=== PATIENT | female | born 1960 | race Caucasian/White ===

== ENCOUNTER 2021-07-24 13:12 | Inpatient (IN) | payer SELFPAY ==
[2021-07-24] MEDS ORDERED: Acetaminophen 325 MG TAB PO PRN (16:04)
[2021-07-24] MEDS ORDERED: Ondansetron ODT 4 MG TAB PO PRN (16:04)
[2021-07-24] MEDS ORDERED: Ondansetron PF 4 MG/2 ML Vial IVP PRN (16:04)
[2021-07-24] MEDS ORDERED: Lisinopril 5 MG TAB PO SCH (16:30)
[2021-07-24] MEDS: Sodium Chloride 0.9% 1,000 ML IV SCH (16:51)
[2021-07-24 18:41] LABS: SARS-CoV-2 NAA Rapid Test Not Detected (NotDetected)
[2021-07-24] MEDS: Famotidine 20 MG TAB PO SCH (20:02)
[2021-07-24] MEDS: Propranolol 10 MG TAB PO SCH (20:02)
[2021-07-24] MEDS: Enoxaparin Sodium 80 MG/0.8 ML SYRINGE SC SCH (20:03)
[2021-07-25] MEDS: Sodium Chloride 0.9% 1,000 ML IV SCH ×2 (03:53→21:11)
[2021-07-25 06:00] LABS: ALT (SGPT) 31 U/L (8-55); AST (SGOT) 70 U/L (5-34); Albumin 2.6 g/dL (3.4-4.8); Alkaline Phosphatase 224 U/L (40-110); Anion Gap 12 mmol/L (10-20); BUN (Urea Nitrogen) 6 mg/dL (9.8-20.1); Calc. Creatinine Clearance 140 mL/min (70-130); Calcium 8.7 mg/dL (7.8-10.44); Carbon Dioxide 22 mmol/L (23-31); Chloride 108 mmol/L (98-107); Globulin 3.3 g/dL (2.4-3.5); Glucose 85 mg/dL (80-115); Potassium 3.4 mmol/L (3.5-5.1); Protein, Total 5.9 g/dL (5.8-8.1); Sodium 139 mmol/L (136-145)
[2021-07-25 06:20] LABS: HBCM Index 0.13 S/CO (0-0.79); HBSAg Index 0.31 S/CO (0-0.99); Hep A IgM AB Non-Reactive (NonReactive); Hep A IgM S/CO 0.44 S/CO (0-0.79); Hep B Surf Ag Non-Reactive S/CO (NonReactive); Hep C IgG Ab Non-Reactive (NonReactive); Hep C Index 0.17 S/CO (0-0.79); Hepatitis B Core IgM Abs Non-Reactive (NonReactive)
[2021-07-25] MEDS: Famotidine 20 MG TAB PO SCH (08:31)
[2021-07-25] MEDS: Lisinopril 5 MG TAB PO SCH (08:31)
[2021-07-25] MEDS: Propranolol 10 MG TAB PO SCH ×2 (08:33→20:29)
[2021-07-25] MEDS: Enoxaparin Sodium 80 MG/0.8 ML SYRINGE SC SCH ×3 (08:34→21:12)
[2021-07-25 11:46] LABS: #Basophils 0.1 thou/uL (0.0-0.2); #Eosinphils 0.1 thou/uL (0.0-0.7); #Lymphocytes 1.6 thou/uL (1.20-3.40); #Monocytes 1.4 thou/uL (0.11-0.59); #Neutrophils 11.6 thou/uL (1.40-6.50); %Basophils 0.4 % (0.0-1.0); %Eosinophils 0.4 % (0.0-10.0); %Lymphocytes 11.2 % (21.0-51.0); %Monocytes 9.5 % (0.0-10.0); %Neutrophils 78.6 % (42.0-75.0); Hemoglobin 14.3 g/dL (12.0-16.0); Mean Corpuscular HGB CONC 32.1 g/dL (32.0-36.0); Mean Corpuscular Hemoglobin 31.8 pg (27.0-31.0); Mean Corpuscular Volume 99.2 fL (78.0-98.0); Mean Platelet Volume 6.4 fL (7.4-10.4); Platelet Count 278 thou/uL (130-400); RBC Distribution Width 13.6 % (11.5-14.5); Red Blood Cell (RBC) Count 4.48 mill/uL (4.20-5.40); White Blood Cell (WBC) Count 14.7 thou/uL (4.8-10.8)
[2021-07-25 11:59] LABS: INR-International Normal Ratio 1.2; Prothrombin Time 15.4 sec (12.0-14.7)
[2021-07-25] MEDS ORDERED: Enoxaparin Sodium 80 MG/0.8 ML SYRINGE SC SCH (20:50)
[2021-07-26 09:08] LABS: #Eosinphils 0.1 thou/uL (0.0-0.7); #Lymphocytes 1.2 thou/uL (1.20-3.40); #Neutrophils 7.4 thou/uL (1.40-6.50); %Basophils 0.4 % (0.0-1.0); %Eosinophils 0.8 % (0.0-10.0); %Lymphocytes 12.5 % (21.0-51.0); %Monocytes 10.3 % (0.0-10.0); Mean Corpuscular HGB CONC 32.1 g/dL (32.0-36.0); Mean Corpuscular Volume 99.6 fL (78.0-98.0); Mean Platelet Volume 6.6 fL (7.4-10.4); Platelet Count 221 thou/uL (130-400); RBC Distribution Width 13.7 % (11.5-14.5); Red Blood Cell (RBC) Count 4.07 mill/uL (4.20-5.40); White Blood Cell (WBC) Count 9.8 thou/uL (4.8-10.8)
[2021-07-26 09:22] LABS: ALT (SGPT) 36 U/L (8-55); AST (SGOT) 84 U/L (5-34); Albumin 2.9 g/dL (3.4-4.8); Alkaline Phosphatase 243 U/L (40-110); Anion Gap 13 mmol/L (10-20); BUN (Urea Nitrogen) 8 mg/dL (9.8-20.1); Bilirubin, Total 3.4 mg/dL (0.2-1.2); Calc. Creatinine Clearance 126 mL/min (70-130); Calcium 8.9 mg/dL (7.8-10.44); Carbon Dioxide 22 mmol/L (23-31); Chloride 109 mmol/L (98-107); Globulin 3.5 g/dL (2.4-3.5); Glucose 97 mg/dL (80-115); Potassium 3.4 mmol/L (3.5-5.1); Protein, Total 6.4 g/dL (5.8-8.1); Sodium 141 mmol/L (136-145)
[2021-07-26] MEDS: Propranolol 10 MG TAB PO SCH ×2 (09:34→21:33)
[2021-07-26] MEDS: Lisinopril 5 MG TAB PO SCH (09:34)
[2021-07-26] MEDS: Sodium Chloride 0.9% 1,000 ML IV SCH ×2 (09:46→21:33)
[2021-07-26 14:25] VITALS: BMI 29.5
[2021-07-26] MEDS ORDERED: Enoxaparin Sodium 80 MG/0.8 ML SYRINGE SC SCH ×2 (16:30→21:00)
[2021-07-27] MEDS: Lisinopril 5 MG TAB PO SCH (09:00)
[2021-07-27] MEDS ORDERED: Sodium Bicarbonate 2.5 MEQ/5 ML VIAL ONE (09:11)
[2021-07-27] MEDS ORDERED: Fentanyl 100 MCG/2 ML VIAL ONE (09:39)
[2021-07-27] MEDS ORDERED: Midazolam HCl 2 mg/2 ml Vial ONE (09:39)
[2021-07-27] MEDS: Propranolol 10 MG TAB PO SCH ×2 (10:48→20:44)
[2021-07-27] MEDS: Sodium Chloride 0.9% 1,000 ML IV SCH (14:32)
[2021-07-27] MEDS ORDERED: Enoxaparin Sodium 80 MG/0.8 ML SYRINGE SC SCH (15:30)
[2021-07-27] MEDS: Enoxaparin Sodium 80 MG/0.8 ML SYRINGE SC SCH (20:44)
[2021-07-28] MEDS: Sodium Chloride 0.9% 1,000 ML IV SCH ×2 (01:15→14:45)
[2021-07-28 05:10] LABS: Band 8 % (5-11); Hemoglobin 11.8 g/dL (12.0-16.0); Hypochromia SLIGHT = 6-15 cells (100X) (0-5/hpf); Lymphocytes 22 % (21-51); MDiff Complete? YES; Mean Corpuscular HGB CONC 31.4 g/dL (32.0-36.0); Mean Corpuscular Hemoglobin 32.1 pg (27.0-31.0); Mean Platelet Volume 6.8 fL (7.4-10.4); Neutrophil 70 % (42-75); Platelet Count 228 thou/uL (130-400); Platelet Morphology Comment Appears Adequate; RBC Distribution Width 14.1 % (11.5-14.5); Red Blood Cell (RBC) Count 3.67 mill/uL (4.20-5.40); White Blood Cell (WBC) Count 9.1 thou/uL (4.8-10.8)
[2021-07-28] MEDS ORDERED: Potassium Chloride 20 MEQ TAB PO SCH (08:00)
[2021-07-28] MEDS: Lisinopril 5 MG TAB PO SCH (08:51)
[2021-07-28] MEDS: Enoxaparin Sodium 80 MG/0.8 ML SYRINGE SC SCH (08:52)
[2021-07-28] MEDS: Propranolol 10 MG TAB PO SCH (08:52)
[2021-07-28 15:06] LABS: Hemoglobin 12.4 g/dL (12.0-16.0)
[2021-07-28 16:01] VITALS: BP 147/84; TEMP 99.3
== END 2021-07-28 17:10 | disposition home or self-care (01) | DRG 436 ==
LOC: MSONC 13:12 → OBSVTOIN 07-25 08:49 → 2NO 07-25 14:32
PROVIDERS: ADMIT Internal Medicine; ATTEND Internal Medicine
PROC: 0FB23ZX Excision of Left Lobe Liver, Percutaneous Approach, Diagnostic (ICD-10-PCS; principal; 2021-07-27)
DX: C78.7 Secondary malignant neoplasm of liver and intrahepatic bile duct (principal); C79.51 Secondary malignant neoplasm of bone; K76.6 Portal hypertension; R18.0 Malignant ascites; I82.412 Acute embolism and thrombosis of left femoral vein; I82.432 Acute embolism and thrombosis of left popliteal vein; I82.442 Acute embolism and thrombosis of left tibial vein; K92.1 Melena; Z20.822 Contact with and (suspected) exposure to COVID-19; I10 Essential (primary) hypertension; F10.11 Alcohol abuse, in remission; C80.1 Malignant (primary) neoplasm, unspecified; D72.829 Elevated white blood cell count, unspecified; Z88.0 Allergy status to penicillin; Z79.899 Other long term (current) drug therapy
CPT/HCPCS: 36415; 47000; 76536; 76705; 77002; 80053; 80074; 82105; 82274; 82378; 85025; 85610; 85730; 86301; 88307; 88313; 88341; 88342; J1650; J2250; J3010; J7050; U0002

== ENCOUNTER 2021-08-30 15:06 | Inpatient (IN) | payer SELFPAY ==
[2021-08-30 15:40] LABS: #Eosinphils 0.1 thou/uL (0.0-0.7); #Lymphocytes 1.7 thou/uL (1.20-3.40); #Monocytes 1.7 thou/uL (0.11-0.59); #Neutrophils 12.2 thou/uL (1.40-6.50); %Basophils 0.3 % (0.0-1.0); %Eosinophils 0.4 % (0.0-10.0); %Lymphocytes 10.6 % (21.0-51.0); %Monocytes 10.8 % (0.0-10.0); Hemoglobin 13.5 g/dL (12.0-16.0); Mean Corpuscular HGB CONC 31.4 g/dL (32.0-36.0); Mean Platelet Volume 6.1 fL (7.4-10.4); Platelet Count 246 thou/uL (130-400); RBC Distribution Width 13.4 % (11.5-14.5); Red Blood Cell (RBC) Count 4.22 mill/uL (4.20-5.40); White Blood Cell (WBC) Count 15.7 thou/uL (4.8-10.8)
[2021-08-30 16:33] LABS: CKMB 0.5 ng/mL (0-6.6)
[2021-08-30 16:39] LABS: ALT (SGPT) 41 U/L (8-55); AST (SGOT) 81 U/L (5-34); Albumin 2.8 g/dL (3.4-4.8); Alkaline Phosphatase 269 U/L (40-110); Anion Gap 14 mmol/L (10-20); BUN (Urea Nitrogen) 10 mg/dL (9.8-20.1); Bilirubin, Total 3.9 mg/dL (0.2-1.2); CK (CPK) 15 U/L (29-168); Calc. Creatinine Clearance 0 mL/min (70-130); Calcium 9.3 mg/dL (7.8-10.44); Carbon Dioxide 25 mmol/L (23-31); Chloride 97 mmol/L (98-107); Globulin 4.2 g/dL (2.4-3.5); Glucose 99 mg/dL (80-115); Lipase 12 U/L (8-78); Potassium 4.4 mmol/L (3.5-5.1); Sodium 132 mmol/L (136-145)
[2021-08-30 16:41] LABS: Bacteria/HPF 4+ HPF (None Seen); Bilirubin 1+ (Negative); Blood, Urine Negative (Negative); Glucose, Urine (Dipstick) Normal (Negative); Ketone, Urine Negative (Negative); Leukocyte 75 Leu/uL (Negative); Nitrite Negative (Negative); Protein, Urine (Dipstick) 70 mg/dL (Neg-Trace); RBC/HPF 0-3 HPF (0-3); Specific Gravity, Urine 1.034 (1.002-1.036); Urobilinogen 3 mg/dL (Less than 2); pH, Urine 5.5 (5.0-9.0)
[2021-08-30 16:42] LABS: Clarity Turbid (Clear)
[2021-08-30] MEDS ORDERED: Calcium Carbonate 500 MG ChewTAB PO PRN (17:12)
[2021-08-30] MEDS ORDERED: Ondansetron ODT 4 MG TAB PO PRN (17:12)
[2021-08-30] MEDS ORDERED: Ondansetron PF 4 MG/2 ML Vial IVP PRN (17:12)
[2021-08-30] MEDS ORDERED: Lidocaine 1% PF 5 ML VIAL ONE (18:07)
[2021-08-30 18:30] LABS: INR-International Normal Ratio 1.2; PTT 31.2 sec (22.9-36.1); Prothrombin Time 15.3 sec (12.0-14.7)
[2021-08-30 19:19] LABS: Lactic Acid 1.9 mmol/L (0.5-2.2)
[2021-08-30] MEDS ORDERED: Enoxaparin Sodium 40 MG/0.4 ML SYRINGE SC SCH (19:30)
[2021-08-30] MEDS ORDERED: Furosemide 40 MG/4 ML VIAL SLOW IVP SCH (19:30)
[2021-08-30] MEDS: Propranolol 10 MG TAB PO SCH (21:30)
[2021-08-30 22:31] LABS: Troponin I 0.128 ng/mL (< 0.028)
[2021-08-30 23:26] VITALS: BMI 31.6
[2021-08-31] MEDS ORDERED: Enoxaparin Sodium 60 MG/0.6 ML SYRINGE SC SCH (00:15)
[2021-08-31 05:48] LABS: #Eosinphils 0.1 thou/uL (0.0-0.7); #Lymphocytes 1.6 thou/uL (1.20-3.40); #Monocytes 1.8 thou/uL (0.11-0.59); #Neutrophils 9.4 thou/uL (1.40-6.50); %Basophils 0.2 % (0.0-1.0); %Eosinophils 0.4 % (0.0-10.0); %Lymphocytes 12.6 % (21.0-51.0); %Monocytes 13.9 % (0.0-10.0); %Neutrophils 72.8 % (42.0-75.0); Hemoglobin 12.5 g/dL (12.0-16.0); Mean Corpuscular HGB CONC 32.5 g/dL (32.0-36.0); Mean Corpuscular Hemoglobin 32.8 pg (27.0-31.0); Mean Platelet Volume 5.9 fL (7.4-10.4); Platelet Count 223 thou/uL (130-400); RBC Distribution Width 13.5 % (11.5-14.5); Red Blood Cell (RBC) Count 3.81 mill/uL (4.20-5.40)
[2021-08-31 06:15] LABS: ALT (SGPT) 37 U/L (8-55); AST (SGOT) 79 U/L (5-34); Albumin 2.4 g/dL (3.4-4.8); Alkaline Phosphatase 243 U/L (40-110); Anion Gap 14 mmol/L (10-20); BUN (Urea Nitrogen) 11 mg/dL (9.8-20.1); Bilirubin, Total 3.9 mg/dL (0.2-1.2); Calc. Creatinine Clearance 144 mL/min (70-130); Calcium 8.5 mg/dL (7.8-10.44); Carbon Dioxide 25 mmol/L (23-31); Chloride 100 mmol/L (98-107); Globulin 3.9 g/dL (2.4-3.5); Glucose 89 mg/dL (80-115); Potassium 4.1 mmol/L (3.5-5.1); Protein, Total 6.3 g/dL (5.8-8.1); Sodium 135 mmol/L (136-145)
[2021-08-31] MEDS ORDERED: Prevnar 13-Val Conj/PF 0.5 ML SYRINGE IM ONE (09:00)
[2021-08-31] MEDS: Propranolol 10 MG TAB PO SCH ×2 (09:30→21:04)
[2021-08-31 10:03] LABS: Bilirubin, Direct 2.3 mg/dL (0.1-0.3)
[2021-08-31] MEDS ORDERED: Spironolactone 100 MG TAB PO SCH (10:45)
[2021-08-31] MEDS ORDERED: Furosemide 20 MG TAB PO SCH (10:45)
[2021-08-31] MEDS ORDERED: CEFAZOLIN 2 GM in Sodium Chloride 0.9% 100 ML IVPB SCH (12:30)
[2021-08-31] MEDS ORDERED: Sodium Bicarbonate 2.5 MEQ/5 ML VIAL ONE (13:23)
[2021-08-31] MEDS ORDERED: Lidocaine 1% PF 5 ML VIAL ONE (13:23)
[2021-08-31] MEDS ORDERED: Enoxaparin Sodium 100 MG/ML SYRINGE SC SCH (13:30)
[2021-08-31 15:22] LABS: WBC/Nucleated-Auto (BF) 191 /cu.mm
[2021-08-31 15:39] LABS: BF Color Yellow; Body Fluid Source Paracentesis Fluid; Clarity Clear (Clear); RBC Count-Automated (BF) 6 /cu.mm; Tube # EDTA
[2021-08-31 15:40] LABS: BF Segmented Neutrophils 14 %; Cell Count Non Hematic 70 %; Lymphocytes 16 %
[2021-09-01 05:10] LABS: #Basophils 0.1 thou/uL (0.0-0.2); #Eosinphils 0.1 thou/uL (0.0-0.7); #Lymphocytes 1.9 thou/uL (1.20-3.40); #Neutrophils 10.6 thou/uL (1.40-6.50); %Basophils 0.4 % (0.0-1.0); %Eosinophils 0.5 % (0.0-10.0); %Lymphocytes 12.8 % (21.0-51.0); %Monocytes 13.8 % (0.0-10.0); %Neutrophils 72.5 % (42.0-75.0); Hemoglobin 12.2 g/dL (12.0-16.0); Mean Corpuscular HGB CONC 32.8 g/dL (32.0-36.0); Mean Corpuscular Hemoglobin 33.2 pg (27.0-31.0); Mean Platelet Volume 5.7 fL (7.4-10.4); Platelet Count 247 thou/uL (130-400); RBC Distribution Width 13.5 % (11.5-14.5); Red Blood Cell (RBC) Count 3.67 mill/uL (4.20-5.40); White Blood Cell (WBC) Count 14.6 thou/uL (4.8-10.8)
[2021-09-01 05:30] LABS: ALT (SGPT) 40 U/L (8-55); AST (SGOT) 85 U/L (5-34); Albumin 2.3 g/dL (3.4-4.8); Alkaline Phosphatase 244 U/L (40-110); Anion Gap 12 mmol/L (10-20); BUN (Urea Nitrogen) 11 mg/dL (9.8-20.1); Bilirubin, Total 3.5 mg/dL (0.2-1.2); Calc. Creatinine Clearance 142 mL/min (70-130); Calcium 8.7 mg/dL (7.8-10.44); Carbon Dioxide 25 mmol/L (23-31); Chloride 100 mmol/L (98-107); Globulin 3.7 g/dL (2.4-3.5); Glucose 97 mg/dL (80-115); Potassium 3.8 mmol/L (3.5-5.1); Sodium 133 mmol/L (136-145)
[2021-09-01] MEDS: Propranolol 10 MG TAB PO SCH (06:43)
[2021-09-01] MEDS ORDERED: Spironolactone 100 MG TAB PO SCH (08:00)
[2021-09-01] MEDS ORDERED: Spironolactone 25 MG TAB PO SCH (08:00)
[2021-09-01] MEDS ORDERED: Furosemide 20 MG TAB PO SCH (09:00)
[2021-09-01] MEDS ORDERED: Midazolam HCl 2 mg/2 ml Vial ONE (12:55)
[2021-09-01] MEDS ORDERED: Propofol 500 MG/50 ML VIAL ONE (12:56)
[2021-09-01] MEDS ORDERED: fentaNYL Citrate/PF 100 MCG/2 ML SYRINGE ONE (12:56)
[2021-09-01] MEDS ORDERED: Lidocaine 1% w/Epinephrine 1:100K 20 ML VIAL ONE (13:06)
[2021-09-01] MEDS ORDERED: Bupivacaine PF 0.5% 30 ML VIAL ONE (13:06)
[2021-09-01] MEDS ORDERED: CEFAZOLIN 2 GM VIAL ONE (13:15)
[2021-09-01] MEDS ORDERED: Sodium Chloride 0.9% 100 ML ONE (13:15)
[2021-09-01] MEDS ORDERED: PHENYLEPHRINE-NS 100 MCG/ML 10 ML SYRINGE ONE (13:19)
[2021-09-01 15:58] VITALS: BP 91/61
[2021-09-01 16:02] VITALS: TEMP 97.8
== END 2021-09-01 16:32 | disposition home or self-care (01) | DRG 424 ==
LOC: ERS 15:06 → NEURO 16:41 → OBSVTOIN 08-31 11:26
PROVIDERS: ADMIT Anesthesiology; ATTEND Anesthesiology
PROC: 0DJW3ZZ Inspection of Peritoneum, Percutaneous Approach (ICD-10-PCS; 2021-08-30)
PROC: 0W9G3ZZ Drainage of Peritoneal Cavity, Percutaneous Approach (ICD-10-PCS; 2021-08-31)
PROC: 0JH60WZ Insertion of Totally Implantable Vascular Access Device into Chest Subcutaneous Tissue and Fascia, Open Approach (ICD-10-PCS; principal; 2021-09-01)
PROC: 02HV33Z Insertion of Infusion Device into Superior Vena Cava, Percutaneous Approach (ICD-10-PCS; 2021-09-01)
PROC: B5181ZA Fluoroscopy of Superior Vena Cava using Low Osmolar Contrast, Guidance (ICD-10-PCS; 2021-09-01)
DX: C25.9 Malignant neoplasm of pancreas, unspecified (principal); Z20.822 Contact with and (suspected) exposure to COVID-19; R18.0 Malignant ascites; C78.7 Secondary malignant neoplasm of liver and intrahepatic bile duct; C79.51 Secondary malignant neoplasm of bone; R77.8 Other specified abnormalities of plasma proteins; R82.71 Bacteriuria; I10 Essential (primary) hypertension; K21.9 Gastro-esophageal reflux disease without esophagitis; Z88.0 Allergy status to penicillin; Z86.718 Personal history of other venous thrombosis and embolism; Z79.899 Other long term (current) drug therapy; Z79.01 Long term (current) use of anticoagulants
CPT/HCPCS: 36415; 49083; 71045; 76705; 80053; 81003; 81015; 82042; 82140; 82247; 82550; 82553; 83605; 83690; 83880; 84157; 84443; 84484; 85025; 85060; 85610; 85730; 87040; 87070; 87086; 87205; 89051; 93005; 93970; 96360; 96361; 96372; 96374; C1788; G0378; J1642; J1650; J1940; J2250; J2704; J3490; S0020; U0003; U0005

== ENCOUNTER 2021-10-04 09:41 | Inpatient (IN) | payer MEDICAID ==
[2021-10-04 10:11] LABS: #Lymphocytes 1.1 thou/uL (1.20-3.40); #Monocytes 0.2 thou/uL (0.11-0.59); #Neutrophils 1.1 thou/uL (1.40-6.50); %Basophils 1.8 % (0.0-1.0); %Eosinophils 1.1 % (0.0-10.0); %Lymphocytes 45.2 % (21.0-51.0); %Monocytes 9.4 % (0.0-10.0); %Neutrophils 42.4 % (42.0-75.0); Hemoglobin 10.6 g/dL (12.0-16.0); Mean Corpuscular HGB CONC 32.9 g/dL (32.0-36.0); Mean Corpuscular Hemoglobin 34.1 pg (27.0-31.0); Mean Platelet Volume 6.5 fL (7.4-10.4); Platelet Count 134 thou/uL (130-400); RBC Distribution Width 16.7 % (11.5-14.5); White Blood Cell (WBC) Count 2.5 thou/uL (4.8-10.8)
[2021-10-04 10:38] LABS: ALT (SGPT) 70 U/L (8-55); AST (SGOT) 77 U/L (5-34); Albumin 2.6 g/dL (3.4-4.8); Alkaline Phosphatase 254 U/L (40-110); Anion Gap 10 mmol/L (10-20); BUN (Urea Nitrogen) 18 mg/dL (9.8-20.1); Bilirubin, Total 3.4 mg/dL (0.2-1.2); Calc. Creatinine Clearance 0 mL/min (70-130); Carbon Dioxide 32 mmol/L (23-31); Chloride 100 mmol/L (98-107); Estimated GFR 100; Globulin 3.8 g/dL (2.4-3.5); Glucose 122 mg/dL (80-115); Lipase 32 U/L (8-78); Potassium 4.2 mmol/L (3.5-5.1); Protein, Total 6.4 g/dL (5.8-8.1); Sodium 138 mmol/L (136-145)
[2021-10-04 11:29] LABS: CKMB 0.8 ng/mL (0-6.6)
[2021-10-04 11:32] LABS: CK (CPK) 15 U/L (29-168); Magnesium 1.4 mg/dL (1.6-2.6)
[2021-10-04] MEDS ORDERED: Magnesium 2 GM/50 ML BAG (IN WATER) ONE (12:02)
[2021-10-04] MEDS ORDERED: Aspirin Chewable 81 MG TAB ONE (12:03)
[2021-10-04] MEDS ORDERED: Senokot S 8.6-50 MG TAB PO PRN (12:18)
[2021-10-04] MEDS ORDERED: HYDROcodone/Acetaminophen 5/325 mg Tablet PO PRN (12:18)
[2021-10-04] MEDS ORDERED: Ondansetron PF 4 MG/2 ML Vial IVP PRN (12:18)
[2021-10-04] MEDS ORDERED: Acetaminophen 325 MG TAB PO PRN (12:18)
[2021-10-04] MEDS ORDERED: Ondansetron ODT 4 MG TAB PO PRN (12:18)
[2021-10-04] MEDS ORDERED: Guaifenesin DM 100-10/5 ML UDCUP PO PRN (12:18)
[2021-10-04 14:09] LABS: SARS-CoV-2 NAA Rapid Test Not Detected (NotDetected)
[2021-10-04] MEDS ORDERED: Furosemide 40 MG/4 ML VIAL SLOW IVP SCH (14:30)
[2021-10-04] MEDS ORDERED: Lidocaine 1% PF 5 ML VIAL ONE (14:42)
[2021-10-04] MEDS ORDERED: Sodium Bicarbonate 2.5 MEQ/5 ML VIAL ONE (14:42)
[2021-10-04 14:48] LABS: Troponin I 0.266 ng/mL (< 0.028)
[2021-10-04] MEDS ORDERED: Magnesium Sulfate In Water 4 GM in Premix Bag 1 BAG IVPB SCH (15:00)
[2021-10-04 17:34] VITALS: BMI 30.4
[2021-10-04 18:49] LABS: Troponin I 0.223 ng/mL (< 0.028)
[2021-10-04 21:15] LABS: Bacteria/HPF None Seen HPF (None Seen); Bilirubin Negative (Negative); Blood, Urine Negative (Negative); Clarity Clear (Clear); Glucose, Urine (Dipstick) Normal (Negative); Ketone, Urine Negative (Negative); Leukocyte Negative Leu/uL (Negative); Nitrite Negative (Negative); Protein, Urine (Dipstick) Negative (Neg-Trace); RBC/HPF 0-3 HPF (0-3); Specific Gravity, Urine 1.006 (1.002-1.036); Squamous Epithelial 0-3 HPF (0-3); Urobilinogen Normal mg/dL (Less than 2); WBC/HPF 0-3 HPF (0-3)
[2021-10-04 21:18] LABS: Urine Culture Reflex No No
[2021-10-04] MEDS: Propranolol 40 MG TAB PO SCH (21:59)
[2021-10-04] MEDS: Famotidine 20 MG TAB PO SCH (21:59)
[2021-10-05] MEDS: Furosemide 40 MG/4 ML VIAL SLOW IVP SCH ×2 (06:03→13:47)
[2021-10-05 06:45] LABS: Anion Gap 13 mmol/L (10-20); BUN (Urea Nitrogen) 17 mg/dL (9.8-20.1); Calc. Creatinine Clearance 137 mL/min (70-130); Calcium 8.8 mg/dL (7.8-10.44); Carbon Dioxide 28 mmol/L (23-31); Chloride 101 mmol/L (98-107); Estimated GFR 101; Glucose 85 mg/dL (80-115); Potassium 3.7 mmol/L (3.5-5.1); Sodium 138 mmol/L (136-145)
[2021-10-05 06:56] LABS: #Lymphocytes 1.3 thou/uL (1.20-3.40); #Monocytes 0.3 thou/uL (0.11-0.59); #Neutrophils 2.2 thou/uL (1.40-6.50); %Basophils 0.2 % (0.0-1.0); %Eosinophils 1.1 % (0.0-10.0); %Lymphocytes 33.9 % (21.0-51.0); %Monocytes 8.5 % (0.0-10.0); %Neutrophils 56.3 % (42.0-75.0); Hemoglobin 9.9 g/dL (12.0-16.0); Mean Corpuscular HGB CONC 32.4 g/dL (32.0-36.0); Mean Corpuscular Hemoglobin 33.3 pg (27.0-31.0); Mean Platelet Volume 7.2 fL (7.4-10.4); Platelet Count 76 thou/uL (130-400); Platelet Morphology Comment Appears Decreased; RBC Distribution Width 16.4 % (11.5-14.5); RBC Morphology Normal; Red Blood Cell (RBC) Count 2.97 mill/uL (4.20-5.40); White Blood Cell (WBC) Count 3.9 thou/uL (4.8-10.8)
[2021-10-05] MEDS: Spironolactone 25 MG TAB PO SCH (08:34)
[2021-10-05] MEDS: Enoxaparin Sodium 40 MG/0.4 ML SYRINGE SC SCH (08:36)
[2021-10-05] MEDS: Propranolol 40 MG TAB PO SCH ×2 (08:36→21:25)
[2021-10-05] MEDS: Famotidine 20 MG TAB PO SCH ×2 (08:36→21:25)
[2021-10-06 05:05] LABS: #Basophils 0.1 thou/uL (0.0-0.2); #Eosinphils 0.1 thou/uL (0.0-0.7); #Lymphocytes 2.3 thou/uL (1.20-3.40); #Monocytes 0.8 thou/uL (0.11-0.59); #Neutrophils 3.6 thou/uL (1.40-6.50); %Basophils 0.8 % (0.0-1.0); %Eosinophils 0.9 % (0.0-10.0); %Lymphocytes 33.3 % (21.0-51.0); %Monocytes 12.2 % (0.0-10.0); %Neutrophils 52.8 % (42.0-75.0); Hemoglobin 9.1 g/dL (12.0-16.0); Mean Corpuscular HGB CONC 32.6 g/dL (32.0-36.0); Mean Corpuscular Hemoglobin 33.4 pg (27.0-31.0); Mean Platelet Volume 7.1 fL (7.4-10.4); Platelet Count 72 thou/uL (130-400); RBC Distribution Width 16.5 % (11.5-14.5); Red Blood Cell (RBC) Count 2.73 mill/uL (4.20-5.40); White Blood Cell (WBC) Count 6.8 thou/uL (4.8-10.8)
[2021-10-06 05:12] LABS: Anion Gap 12 mmol/L (10-20); BUN (Urea Nitrogen) 17 mg/dL (9.8-20.1); Calc. Creatinine Clearance 124 mL/min (70-130); Calcium 8.9 mg/dL (7.8-10.44); Carbon Dioxide 30 mmol/L (23-31); Chloride 99 mmol/L (98-107); Estimated GFR 99; Glucose 90 mg/dL (80-115); Potassium 3.4 mmol/L (3.5-5.1); Sodium 138 mmol/L (136-145)
[2021-10-06] MEDS ORDERED: Potassium Chloride 20 MEQ TAB PO SCH (08:00)
[2021-10-06 08:23] VITALS: TEMP 97.2
[2021-10-06] MEDS ORDERED: Furosemide 20 MG TAB PO SCH (09:00)
[2021-10-06] MEDS: Famotidine 20 MG TAB PO SCH (09:42)
[2021-10-06] MEDS: Spironolactone 25 MG TAB PO SCH (09:42)
[2021-10-06] MEDS: Propranolol 40 MG TAB PO SCH (09:42)
[2021-10-06] MEDS: Enoxaparin Sodium 40 MG/0.4 ML SYRINGE SC SCH (09:42)
[2021-10-06 12:02] VITALS: BP 112/71
[2021-10-07] MEDS ORDERED: Prevnar 13-Val Conj/PF 0.5 ML SYRINGE IM ONE (18:00)
== END 2021-10-06 14:49 | disposition home or self-care (01) | DRG 433 ==
LOC: ERS 09:41 → OBSVTOIN 12:18 → ERHOLD 12:18 → MSONC 16:06
PROVIDERS: ADMIT Internal Medicine; ATTEND Internal Medicine
PROC: 0W9G3ZZ Drainage of Peritoneal Cavity, Percutaneous Approach (ICD-10-PCS; principal; 2021-10-04)
DX: K70.31 Alcoholic cirrhosis of liver with ascites (principal); Z20.822 Contact with and (suspected) exposure to COVID-19; C22.0 Liver cell carcinoma; I82.509 Chronic embolism and thrombosis of unspecified deep veins of unspecified lower extremity; J90 Pleural effusion, not elsewhere classified; D63.8 Anemia in other chronic diseases classified elsewhere; E83.42 Hypomagnesemia; I10 Essential (primary) hypertension; K70.11 Alcoholic hepatitis with ascites; E87.6 Hypokalemia; Z88.0 Allergy status to penicillin; Z79.899 Other long term (current) drug therapy; Z79.01 Long term (current) use of anticoagulants; Z82.49 Family history of ischemic heart disease and other diseases of the circulatory system
CPT/HCPCS: 36415; 49083; 71045; 76705; 80048; 80053; 81001; 82550; 82553; 83690; 83735; 83880; 84484; 85025; 93005; 93306; 96365; J1642; J1940; J3475; U0002

== ENCOUNTER 2021-11-19 04:19 | Inpatient (IN) | payer OTHER ==
[2021-11-19] MEDS ORDERED: Cefepime 2 GM VIAL ONE (05:14)
[2021-11-19] MEDS ORDERED: Boostrix 0.5 ML (Tdap) VIAL ONE (05:14)
[2021-11-19 05:56] LABS: #Basophils 0.1 thou/uL (0.0-0.2); #Eosinphils 0.1 thou/uL (0.0-0.7); #Lymphocytes 2.3 thou/uL (1.20-3.40); #Monocytes 0.9 thou/uL (0.11-0.59); #Neutrophils 3.3 thou/uL (1.40-6.50); %Basophils 0.8 % (0.0-1.0); %Eosinophils 2.2 % (0.0-10.0); %Lymphocytes 34.1 % (21.0-51.0); %Monocytes 13.5 % (0.0-10.0); %Neutrophils 49.4 % (42.0-75.0); Hemoglobin 11.2 g/dL (12.0-16.0); Mean Corpuscular HGB CONC 33.2 g/dL (32.0-36.0); Mean Corpuscular Hemoglobin 36.2 pg (27.0-31.0); Mean Platelet Volume 7.4 fL (7.4-10.4); Platelet Count 184 thou/uL (130-400); RBC Distribution Width 15.2 % (11.5-14.5); White Blood Cell (WBC) Count 6.7 thou/uL (4.8-10.8)
[2021-11-19 06:19] LABS: ALT (SGPT) 36 U/L (8-55); AST (SGOT) 51 U/L (5-34); Albumin 2.3 g/dL (3.4-4.8); Alkaline Phosphatase 170 U/L (40-110); Anion Gap 14 mmol/L (10-20); BUN (Urea Nitrogen) 24 mg/dL (9.8-20.1); Bilirubin, Total 2.4 mg/dL (0.2-1.2); Calc. Creatinine Clearance 0 mL/min (70-130); Calcium 9.2 mg/dL (7.8-10.44); Carbon Dioxide 20 mmol/L (23-31); Chloride 114 mmol/L (98-107); Estimated GFR 77; Globulin 4.5 g/dL (2.4-3.5); Glucose 97 mg/dL (80-115); Lipase 51 U/L (8-78); Potassium 3.9 mmol/L (3.5-5.1); Protein, Total 6.8 g/dL (5.8-8.1); Sodium 144 mmol/L (136-145)
[2021-11-19 07:35] LABS: INR-International Normal Ratio 2.2; Prothrombin Time 24.7 sec (12.0-14.7)
[2021-11-19] MEDS ORDERED: Ondansetron PF 4 MG/2 ML Vial IVP PRN (08:29)
[2021-11-19] MEDS ORDERED: Ondansetron ODT 4 MG TAB PO PRN (08:29)
[2021-11-19] MEDS ORDERED: Senokot S 8.6-50 MG TAB PO PRN (08:29)
[2021-11-19] MEDS ORDERED: Enoxaparin Sodium 40 MG/0.4 ML SYRINGE SC SCH (09:45)
[2021-11-19] MEDS: Sodium Chloride 0.9% 1,000 ML IV SCH ×2 (12:34→20:36)
[2021-11-19] MEDS ORDERED: Enoxaparin Sodium 40 MG/0.4 ML SYRINGE ONE (12:59)
[2021-11-19 15:20] LABS: SARS-CoV-2 NAA Rapid Test DETECTED (NotDetected)
[2021-11-19 15:45] VITALS: BMI 21.7
[2021-11-20] MEDS: traMADol HCl 50 MG TAB PO PRN (00:30)
[2021-11-20 05:38] LABS: Anion Gap 14 mmol/L (10-20); BUN (Urea Nitrogen) 23 mg/dL (9.8-20.1); Calc. Creatinine Clearance 76 mL/min (70-130); Calcium 8.2 mg/dL (7.8-10.44); Carbon Dioxide 15 mmol/L (23-31); Chloride 118 mmol/L (98-107); Estimated GFR 84; Glucose 76 mg/dL (80-115); Potassium 4.2 mmol/L (3.5-5.1); Sodium 143 mmol/L (136-145)
[2021-11-20 07:53] LABS: Band 4 % (5-11); Eosinophils 3 % (0-10); Hemoglobin 10.5 g/dL (12.0-16.0); Lymphocytes 16 % (21-51); MDiff Complete? YES; Macrocytosis MODERATE=16-30 cells (100X) (0-5/hpf); Mean Corpuscular HGB CONC 31.8 g/dL (32.0-36.0); Mean Platelet Volume 7.1 fL (7.4-10.4); Monocytes 23 % (0-10); Neutrophil 47 % (42-75); Platelet Count 179 thou/uL (130-400); Platelet Morphology Comment Appears Adequate; Polychromasia SLIGHT = 2-3 cells (100X) (0-2/hpf); RBC Distribution Width 14.6 % (11.5-14.5); Reactive Lymphocytes 7 % (0-10); Target Cells SLIGHT = 2-5 cells (100X) (0-1/hpf); Tear Drops SLIGHT = 2-5 cells (100X) (0-1/hpf); White Blood Cell (WBC) Count 5.9 thou/uL (4.8-10.8)
[2021-11-20] MEDS ORDERED: Prevnar 13-Val Conj/PF 0.5 ML SYRINGE IM ONE (09:00)
[2021-11-20] MEDS: Ascorbic Acid 500 mg Chewable Tablet PO SCH (09:31)
[2021-11-20] MEDS: Enoxaparin Sodium 40 MG/0.4 ML SYRINGE SC SCH (09:31)
[2021-11-20] MEDS: Zinc Sulfate 220 MG CAP PO SCH (09:31)
[2021-11-20] MEDS: Sodium Chloride 0.45% 1,000 ML IV SCH ×2 (11:48→23:51)
[2021-11-20] MEDS: Propranolol 40 MG TAB PO SCH (20:07)
[2021-11-21 04:54] LABS: Chloride 113 mmol/L (98-107); Potassium 3.9 mmol/L (3.5-5.1); Sodium 139 mmol/L (136-145)
[2021-11-21 04:55] LABS: Glucose 79 mg/dL (80-115)
[2021-11-21 04:57] LABS: Anion Gap 14 mmol/L (10-20); Carbon Dioxide 16 mmol/L (23-31)
[2021-11-21 04:59] LABS: Calc. Creatinine Clearance 80 mL/min (70-130); Estimated GFR 89
[2021-11-21 05:00] LABS: BUN (Urea Nitrogen) 18 mg/dL (9.8-20.1)
[2021-11-21 05:01] LABS: Band 3 % (5-11); Eosinophils 4 % (0-10); Lymphocytes 23 % (21-51); MDiff Complete? YES; Mean Corpuscular HGB CONC 34.1 g/dL (32.0-36.0); Mean Corpuscular Hemoglobin 37.7 pg (27.0-31.0); Mean Platelet Volume 7.1 fL (7.4-10.4); Monocytes 12 % (0-10); Neutrophil 58 % (42-75); Platelet Count 171 thou/uL (130-400); RBC Distribution Width 14.9 % (11.5-14.5); Red Blood Cell (RBC) Count 3.19 mill/uL (4.20-5.40); White Blood Cell (WBC) Count 6.4 thou/uL (4.8-10.8)
[2021-11-21] MEDS: Furosemide 40 MG TAB PO SCH (08:55)
[2021-11-21] MEDS: Zinc Sulfate 220 MG CAP PO SCH (08:55)
[2021-11-21] MEDS: Enoxaparin Sodium 40 MG/0.4 ML SYRINGE SC SCH (08:55)
[2021-11-21] MEDS: Ascorbic Acid 500 mg Chewable Tablet PO SCH (08:55)
[2021-11-21] MEDS: Propranolol 40 MG TAB PO SCH ×2 (08:55→20:57)
[2021-11-22] MEDS: Zinc Sulfate 220 MG CAP PO SCH (08:59)
[2021-11-22] MEDS: Furosemide 40 MG TAB PO SCH (08:59)
[2021-11-22] MEDS: Ascorbic Acid 500 mg Chewable Tablet PO SCH (08:59)
[2021-11-22] MEDS: Propranolol 40 MG TAB PO SCH ×2 (08:59→20:13)
[2021-11-22] MEDS: Enoxaparin Sodium 40 MG/0.4 ML SYRINGE SC SCH (09:00)
[2021-11-22] MEDS ORDERED: Senokot S 8.6-50 MG TAB PO PRN (09:00)
[2021-11-22] MEDS: traMADol HCl 50 MG TAB PO PRN (09:16)
[2021-11-22] MEDS ORDERED: Lorazepam 0.5 MG TAB PO PRN (12:52)
[2021-11-23] MEDS: traMADol HCl 50 MG TAB PO PRN (00:21)
[2021-11-23 07:51] VITALS: BP 108/71; TEMP 98.1
[2021-11-23] MEDS: Propranolol 40 MG TAB PO SCH (08:05)
[2021-11-23] MEDS: Enoxaparin Sodium 40 MG/0.4 ML SYRINGE SC SCH (08:05)
[2021-11-23] MEDS: Ascorbic Acid 500 mg Chewable Tablet PO SCH (08:05)
[2021-11-23] MEDS: Furosemide 40 MG TAB PO SCH (08:05)
[2021-11-23] MEDS: Zinc Sulfate 220 MG CAP PO SCH (08:05)
== END 2021-11-23 17:40 | DRG 435 ==
LOC: ERS 04:19 → SUATTDRO 04:19 → ERHOLD 08:25 → MSONC 14:14
PROVIDERS: ADMIT Internal Medicine; ATTEND Hospitalist
DX: C22.1 Intrahepatic bile duct carcinoma (principal); G92.8 Other toxic encephalopathy; E87.2 Acidosis; K76.6 Portal hypertension; E72.20 Disorder of urea cycle metabolism, unspecified; E46 Unspecified protein-calorie malnutrition; Z66 Do not resuscitate; Z51.5 Encounter for palliative care; I10 Essential (primary) hypertension; K21.9 Gastro-esophageal reflux disease without esophagitis; R53.81 Other malaise; K72.90 Hepatic failure, unspecified without coma; E86.0 Dehydration; D53.9 Nutritional anemia, unspecified; R62.7 Adult failure to thrive; K70.31 Alcoholic cirrhosis of liver with ascites; K70.11 Alcoholic hepatitis with ascites; Z86.16 Personal history of COVID-19; Z86.718 Personal history of other venous thrombosis and embolism; I25.2 Old myocardial infarction; Z79.899 Other long term (current) drug therapy; Z88.0 Allergy status to penicillin; Z68.21 Body mass index [BMI] 21.0-21.9, adult; Z98.890 Other specified postprocedural states; Z80.41 Family history of malignant neoplasm of ovary; Z85.05 Personal history of malignant neoplasm of liver
CPT/HCPCS: 36415; 70450; 71045; 72125; 72128; 72131; 80048; 80053; 82140; 83605; 83690; 84443; 84484; 85025; 85610; 87040; 90471; 90715; 93005; 94760; 96365; J0692; J1650; J7050; U0002